=== PATIENT | male | born 1965 | race Caucasian/White ===

== ENCOUNTER 2018-08-29 04:00 | Emergency (ER) | payer OTHER ==
[~2018-08-29] VITALS: Ht 188 cm; Wt 100.0 kg
[2018-08-29 04:10] VITALS: Ht 188 cm; Wt 100.0 kg
--- NOTE | 2018-08-29 04:37 | PSY ---
Date/Time of Note Date/Time of Note DATE: 08/29/18 TIME: 04:33 Psychiatric Subjective Eval Consent Pt consented to telemedicine: Yes Subjective Evaluation Patient location: emergency Chief Complaint: BIB RA 889 W/ SUICIDAL IDEATION, HEARING VOICES AND AP Assessment and Plan Recommendation/Plan Multiple antipsychotics: Yes Discharge Disposition: Psychiatric inpatient Legal Status: Continue involuntary hold Assessment Additional comments: IDENTIFYING INFORMATION: 53 year old Male patient who is currently located at the hospital and for whom psychiatric consultation was requested. SOURCES OF INFORMATION: The patient who appears to be somewhat reliable and the medical records; the nursing staff. CHIEF COMPLAINT: "voices". HISTORY OF PRESENT ILLNESS: The patient was interviewed via telemedicine in the presence of and under the supervision of nursing staff of the hospital. The consent to conducting this interview via telemedicine was obtained by the nursing staff at the hospital. BLANCA Bernard reports that the patient presented by police on a 5150 hold for DTS. Pt presented with AH telling him to jump into traffic. The patient reports having AH telling him to jump in front of traffic, paranoid delusions of people wanting to kill him. The patient denies using alcohol heavily or regularly. The patient denies using any other substances. In terms of past psychiatric history, the patient reports having a history of past psychiatric hospitalizations. The patient reports having a history of past suicide attempts. Past medication trials: seroquel, wellbutrin, trazodone, gabapentin. PAST MEDICAL HISTORY: dilated aortic root. CURRENT MEDICATIONS: none- noncompliant. ALLERGIES TO MEDICATIONS: NKDA. LABORATORY TESTS: pending. SOCIAL HISTORY: lives at transitional housing, on SSI. REVIEW OF SYSTEMS: Constitutional (e.g., fever, weight loss): negative; Eyes, Ears, Nose, Mouth, Throat: negative; Cardiovascular: negative; Respiratory: negative; Gastrointestinal: negative; Genitourinary: negative; Musculoskeletal: negative; Integumentary (skin and/or breast): negative; Neurological: negative; Psychiatric: as per HPI; Endocrine: negative; Hematologic/Lymphatic: negative; Allergic/Immunologic: negative. MENTAL STATUS EXAMINATION: General Appearance and Behavior: Calm, cooperative with the interview, pleasant with the current interviewer, makes fair eye contact, fairly groomed, no abnormal movements noted, Speech: Regular rate, regular rhythm, normal latency, normal volume, somewhat decreased amount, Flow of thought: sequential, logical, goal-directed, Content of thought: + auditory hallucinations, no visual hallucinations, + del usions, positive for suicidal ideation; no homicidal ideation, Mood: "depressed", Affect: dysthymic, reactive, Attention: normal based on the interview, Insight: fair, Judgment: poor, Memory: normal based on the interview, Sensorium: alert and oriented to person, place and date. ASSESSMENT: The patient's presentation and history are consistent with the diagnosis of unspecified psychotic disorder. The patient presents with an exacerbation of psychosis in the context of medication noncompliance, psychosocial stressors. PLAN: - Medication management: Would start seroquel 100 mg po qhs. Would start haloperidol 5 mg IM PRN severe agitation q4 hours. Would start diphenhydramine 50 mg IM PRN severe agitation q4 hours. Would start lorazepam 2 mg IM PRN severe agitation q4 hours Will defer to the inpatient psychiatry team for other medication changes. - Labs: Please check CBC, CMP, Alcohol level, UDS. - Psychotherapy: Provided supportive psychotherapy and psychoeducation. - Disposition: Would recommend involuntary admission to the inpatient psychiatric unit given the severity of the patient's psychiatric condition and the fact that the patient is an imminent danger to self and/or others so long as the patient has been cleared medically for admission to psychiatry. Inpatient psychiatric admission is at this time the least restrictive environment where the patient can receive the psychiatric care that is needed. Would place on suicide precautions. The patient fulfills criteria for being placed on an involuntary hold for being a danger to self due to a psychiatric disorder. Discussed about the above plan with Dr. Felipe. GREGG BLACKWOOD MD Aug 29, 2018 04:37
--- NOTE | 2018-08-29 05:44 | ERD ---
ER Documentation Chief Complaint Chief Complaint BIB RA 889 W/ SUICIDAL IDEATION, HEARING VOICES AND AP HPI This is a 53-year-old male comes in with suicidal ideation. Says hearing voices. Says the voices are telling to hurt himself. ROS All systems reviewed and are negative except as per history of present illness. PMhx/Soc Medical and Surgical Hx: pt denies Surgical Hx History of Surgery: No Anesthesia Reaction: No Hx Neurological Disorder: Yes (schizoaffective) Hx Respiratory Disorders: No Hx Cardiac Disorders: Yes (htn) Hx Psychiatric Problems: No Hx Miscellaneous Medical Probl: No Hx Alcohol Use: No Hx Substance Use: Yes Hx Tobacco Use: Yes Smoking Status: Current some day smoker Physical Exam Vitals Vital Signs Date Temp Pulse Resp B/P (MAP) Pulse Ox O2 O2 Flow FiO2 Time Delivery Rate 08/29/18 98.4 89 20 156/103 99 04:10 (120) Physical Exam Const: No acute distress Head: Atraumatic Eyes: Normal Conjunctiva ENT: Normal External Ears, Nose and Mouth. Neck: Full range of motion. No meningismus. Resp: Clear to auscultation bilaterally Cardio: Regular rate and rhythm, no murmurs Abd: Soft, non tender, non distended. Normal bowel sounds Skin: No petechiae or rashes Back: No midline or flank tenderness Ext: No cyanosis, or edema Neur: Awake and alert Psych: Normal Mood and Affect Result Diagram: 08/29/18 0453 Results 24 hrs Laboratory Tests Test 08/29/18 04:53 White Blood Count 4.5 10^3/ul Red Blood Count 4.46 10^6/ul Hemoglobin 12.2 g/dl Hematocrit 36.6 % Mean Corpuscular Volume 82.1 fl Mean Corpuscular Hemoglobin 27.4 pg Mean Corpuscular Hemoglobin Concent 33.3 g/dl Red Cell Distribution Width 14.3 % Platelet Count 183 10^3/UL Mean Platelet Volume 10.2 fl Immature Granulocytes % 0.200 % Neutrophils % 50.2 % Lymphocytes % 36.5 % Monocytes % 11.1 % Eosinophils % 0.7 % Basophils % 1.3 % Nucleated Red Blood Cells % 0.0 /100WBC Immature Granulocytes # 0.010 10^3/ul Neutrophils # 2.3 10^3/ul Lymphocytes # 1.7 10^3/ul Monocytes # 0.5 10^3/ul Eosinophils # 0.0 10^3/ul Basophils # 0.1 10^3/ul Nucleated Red Blood Cells # 0.0 10^3/ul Procedures/MDM Patient's behavioral symptoms have stabilized while in the department. Patient is medically cleared and appropriate for psychiatric evaluation and work up. No e/o neurologic, toxic, infectious, or metabolic cause. Departure Diagnosis: Primary Impression: Suicidal ideation Condition: Stable BHUMIKA TEIXEIRA Aug 29, 2018 05:44
[2018-08-29] MEDS ORDERED: LORAZEPAM 1 MG TAB PO ONE ×2 (07:30→17:00)
[2018-08-29] MEDS ORDERED: LORAZEPAM 2 MG INJ ONE (11:48)
[2018-08-29] MEDS ORDERED: THIAMINE 100 MG TAB PO ONE (12:00)
[2018-08-29] MEDS ORDERED: LORAZEPAM 2 MG INJ IM ONE (12:00)
[2018-08-29] MEDS: FOLIC ACID 1 MG TAB PO ONE ×2 (13:21→13:37)
--- NOTE | 2018-08-29 14:17 | QN ---
Documentation Comment Psychiatric Observation Note: Indication: Suicidal ideation Duration: Greater than 8 hours Family history: As documented in original HPI The patient was observed with serial exams over the above timeframe. The patient continued to be well-appearing, and observation continued without complication. All other needs have been met during emergency department stay. Routine psychiatric medications ordered: Yes, see EMR Seroquel 100 nightly Patient did have mild alcohol withdrawal syndrome. The patient was given Ativan, multivitamin with dramatic improvement. This is stabilized. Hold status: Telemetry medicine psychiatry has recommended 5150 hold Placement status: Pending placement Psych recommended PLAN: - Medication management: Would start seroquel 100 mg po qhs. Would start haloperidol 5 mg IM PRN severe agitation q4 hours. Would start diphenhydramine 50 mg IM PRN severe agitation q4 hours. Would start lorazepam 2 mg IM PRN severe agitation q4 hours Will defer to the inpatient psychiatry team for other medication changes. - Labs: Please check CBC, CMP, Alcohol level, UDS. - Psychotherapy: Provided supportive psychotherapy and psychoeducation. - Disposition: Would recommend involuntary admission to the inpatient psychiatric unit given the severity of the patient's psychiatric condition and the fact that the patie nt is an imminent danger to self and/or others so long as the patient has been cleared medically for admission to psychiatry. Inpatient psychiatric admission is at this time the least restrictive environment where the patient can receive the psychiatric care that is needed. Would place on suicide precautions. The patient fulfills criteria for being placed on an involuntary hold for being a danger to self due to a psychiatric disorder. Discussed about the above plan with Dr. Felipe. CORRINE MARTINEZ MD Aug 29, 2018 14:17
[2018-08-29 15:45] VITALS: BP 148/91; PULSE 104; RESP 20
[2018-08-29] MEDS ORDERED: QUETIAPINE 100 MG TAB PO SCH (21:00)
== END 2018-08-29 19:13 ==
LOC: E/R 04:00
DX: R45.851 Suicidal ideations (principal); I10 Essential (primary) hypertension; F17.210 Nicotine dependence, cigarettes, uncomplicated
CPT/HCPCS: 36415; 80053; 80307; 81001; 85025; 96372; J2060; Z7502; Z7610